=== PATIENT | female | born 1990 | race Caucasian/White ===

== ENCOUNTER 2023-12-17 08:20 | Outpatient (CLI) | payer OTHER, SELFPAY ==
--- NOTE | ~2023-12-17 | MMUS_ITS ---
EXAMINATION: MM diagnostic yair RT w yumiko, US breast RT complete HISTORY: Palpable right breast mass TECHNIQUE: Additional 3-D tomosynthesis images of the right breast were performed and synthetic 2-D i mages were generated. CAD analysis was submitted and interpreted. High resolution complete right dano st ultrasound was performed. COMPARISON: No prior studies for comparison. BREAST PARENCHYMAL COMPOSITION: Dense: The breasts are heterogeneously dense, which may obscure small masses FINDINGS: MAMMOGRAPHIC FINDINGS: In the upper outer quadrant of the right breast in the area of palpable concern there is a large circ umscribed 5 cm mass posteriorly. No other discrete masses or architectural distortion. There are no s uspicious clusters of calcifications. ULTRASOUND: Complete US of all 4 quadrants of the right breast and retroareolar region was reviewed. At 4:00, 3 c m from the nipple, there is an oval hypoechoic nonvascular mass with parallel orientation, no posteri or features measuring 7 mm. At 7:00, 2 cm from the nipple, there is a oval parallel oriented hypoecho ic nonvascular 5 mm mass, likely benign. At 8:00, 2 cm from the nipple there is an oval hypoechoic no nvascular mass parallel orientation, no significant posterior features. The margins are slightly irre gular with a mass measuring 6 x 6 x 6 mm. IMPRESSION: 1. Suspicious right breast masses located at 9:00, 5 cm from the nipple measuring 4.4 cm by ultrasoun d and at 8:00, 2 cm from the nipple measuring 6 mm. Ultrasound-guided right breast biopsies recommend ed. Additional right breast masses at 4:00, 3 cm from the nipple and 7:00, 2 cm from the nipple are l ikely benign. 2. Ultrasound-guided right breast biopsies recommended. BI-RADS category 4, suspicious findings. Reviewed, dictated and finalized at location B. IMPRESSION: 1. Suspicious right breast masses located at 9:00, 5 cm from the nipple measuri ng 4.4 cm by ultrasound and at 8:00, 2 cm from the nipple measuring 6 mm. Ultra sound-guided right breast biopsies recommended. Additional right breast masses at 4:00, 3 cm from the nipple and 7:00, 2 cm from the nipple are likely benign. 2. Ultrasound-guided right breast biopsies recommended. BI-RADS category 4, suspicious findings.
== END 2023-12-17 08:21 ==
PROVIDERS: PCP Nurse Practitioner; Visit Provider Nurse Practitioner
DX: N63.15 Unspecified lump in the right breast, overlapping quadrants (principal); R92.8 Other abnormal and inconclusive findings on diagnostic imaging of breast
CPT/HCPCS: 76641; 77061; 77065; G0279

== ENCOUNTER 2025-05-17 10:44 | Outpatient (CLI) | payer OTHER, SELFPAY ==
--- NOTE | ~2025-05-17 | MM_ITS ---
EXAMINATION: MM screening yair BI w yumiko HISTORY: Screening TECHNIQUE: Craniocaudal and mediolateral oblique 3-D tomosynthesis images were obtained and synthetic 2-D images were generated. CAD analysis was submitted and interpreted. COMPARISON: 12/17/2023 BREAST PARENCHYMAL COMPOSITION: Dense: The breasts are heterogeneously dense, which may obscure small masses FINDINGS: There is a circumscribed mass in the upper outer quadrant of the right breast, middle-posterior depth which was biopsy-proven benign at outside institution. No new masses are identified in the right breast. There is a mass in the upper outer quadrant of the left breast, posterior third. There is a second smaller mass in the central aspect of the left breast, posterior third. IMPRESSION: 1. No significant change to right breast mass which was previously biopsy-proven benign and outside institution. 2. Left breast masses are identified. No prior left mammograms are available for comparison. Additional spot compression and mediolateral views with possible follow-up breast ultrasound recommended. BI-RADS Category 0: Incomplete: Needs additional imaging evaluation. Reviewed, dictated and finalized at location B. IMPRESSION: 1. No significant change to right breast mass which was previously biopsy-prove n benign and outside institution. 2. Left breast masses are identified. No prior left mammograms are available fo r comparison. Additional spot compression and mediolateral views with possible follow-up breast ultrasound recommended. BI-RADS Category 0: Incomplete: Needs additional imaging evaluation.
== END 2025-05-17 10:45 | disposition home or self-care (01) ==
LOC: MICIMG 10:45
PROVIDERS: PCP Nurse Practitioner; Visit Provider Nurse Practitioner
DX: Z12.31 Encounter for screening mammogram for malignant neoplasm of breast (principal); R92.8 Other abnormal and inconclusive findings on diagnostic imaging of breast
CPT/HCPCS: 77063; 77067

== ENCOUNTER 2025-07-05 08:52 | Outpatient (CLI) | payer OTHER, SELFPAY ==
--- NOTE | ~2025-07-05 | MMUS_ITS ---
EXAMINATION: MM diagnostic yair LT w yumiko, US breast LT limited INDICATION: 35-year old female; BI-RADS 0, callback to evaluate Left breast masses COMPARISON: 05/17/2025 TECHNIQUE: Digital breast tomosynthesis True lateral and spot compression CC and MLO views of the LEFT breast were obtained with computer-aided detection to assist in interpretation of the study. FINDINGS: The breasts are heterogeneously dense, which may obscure small masses. A circumscribed mass persists in the superior lateral mid to posterior depth in the left breast. Additional circumscribed parallel orientated mass persists in the inferior central at posterior depth. Both lesions correlates to the area of concern on the screening mammogram. LEFT BREAST ULTRASOUND FINDINGS: Targeted evaluation of the area of concern was completed. There is a 1.12 x 0.51 x 1.07 cm circumscribed hypoechoic mass at 2:00 location 5 cm from the nipple in the LEFT breast that correlate to an area of Mammographic finding. At 5:00, 3.5 cm FN there is a parallel oriented 0.87 x 0.31 x 0.56 cm hypoechoic circumscribed mass which correlates to a mammographic finding. IMPRESSION: Probable Benign LEFT breast masses. Short-term follow-up recommended. RECOMMENDATION: 6 month follow-up diagnostic LEFT mammogram and LEFT breast ultrasound. BI-RADS 3, PROBABLY BENIGN Reviewed, dictated and finalized at location B. H EXAMINER MACHINE IMPRESSION: Probable Benign LEFT breast masses. Short-term follow-up recommended. RECOMMENDATION: 6 month follow-up diagnostic LEFT mammogram and LEFT breast ultrasound. BI-RADS 3, PROBABLY BENIGN
== END 2025-07-05 08:53 | disposition home or self-care (01) ==
LOC: MICIMG 08:53
PROVIDERS: PCP Obstetrics & Gynecology Gynecology; Visit Provider Obstetrics & Gynecology Gynecology
DX: R92.8 Other abnormal and inconclusive findings on diagnostic imaging of breast (principal)
CPT/HCPCS: 76642; 77061; 77065; G0279